=== PATIENT | female | born 1965 | race Caucasian/White ===

== ENCOUNTER 2017-08-03 09:42 | Emergency (ER) | payer BC, SELFPAY ==
[2017-08-03 10:59] VITALS: BP 0/0; PULSE 0; RESP 0; TEMP -17.7; TEMP 0
== END 2017-08-03 10:58 | disposition left against medical advice (07) ==
LOC: UTC 09:46
PROVIDERS: Emergency Provider Nurse Practitioner; Family Provider Family Medicine
DX: Z53.29 Procedure and treatment not carried out because of patient's decision for other reasons (principal)

== ENCOUNTER 2017-08-03 11:44 | Emergency (ER) | payer BC, SELFPAY ==
[2017-08-03 12:41] VITALS: BP 113/66; PULSE 62; RESP 16; TEMP 36.8; O2SAT 100; BMI 23.8
--- NOTE | 2017-08-03 12:59 | HMH.EDUTC ---
[facility] [place] Disposition Clinical Impression: Ear problems Disposition: Home, Self-Care Condition on Discharge: Good Instructions: DI for Cerumen Impaction Additional Instructions: Follow up with family doctor Return if needed Debrox may help with wax in ear Time of Disposition: 13:08 Medical Decision Making - Medical Records Medical records reviewed: Yes: I reviewed the patient's medical records. - Shade Inquiry Pt receiving controlled substance: No Shade was queried for this patient: No Vital Signs: 08/03/17 12:41 Temperature 98.3 F Temperature Source Temporal Artery Scan Pulse Rate [Right] 62 Respiratory Rate 16 Blood Pressure [Right Arm] 113/66 Blood Pressure Mean [Right Arm] 81 Blood Pressure Source [Right Arm] Automatic Cuff Blood Pressure Position [Right Arm] Sitting 02 Sat by Pulse Oximetry 100 Oxygen Delivery Method Room Air [facility] HPI - General Stated complaint: right ear pain Time Seen by Provider: 08/03/17 12:55 Mode of Arrival: Ambulatory Source of Information: Patient Limitations: No Limitations Description of Symptoms (Recalled from Triage Doc. by RN): RIGHT EAR ACHE X2 DAYS HEENT Symptoms (Recalled from RN notes): Yes Resp Symptoms (Recalled from RN notes): No Skin Symptoms (Recalled from RN notes): No MS Symptoms (Recalled from RN notes): No Functional Status (Recalled from RN notes): N - History of Present Illness Provider Complaint: Patient states that she had a bug in her ear about a year ago and now she is sensative in her ears State that she feels like her right ear may be stopped up with wax State that at times she can feel the wax move and it is irritating her and making her ear ache - Related Data Allergies Allergy/AdvReac Type Severity Reaction Status Date / Time No Known Allergies Allergy Verified 08/03/17 12:44 - Worker's Comp Is this a Worker's Comp case?: No [facility] History I have reviewed the patient's past medical history: Yes - Social History Alcohol Intake: never - Psychiatric History Expresses thoughts of harming self/others: None Suicide Plan Description: No Plan ROS Obtained: Yes All systems reviewed & no additional complaints - ENT Ears, Nose, Mouth, and Throat: Reports otalgia Physical Exam - General General appearance: alert, in no apparent distress - Expanded ENT Exam External ear exam: Present: other (No redness, large ball of wax noted in right ear, easily removed with crulette. Patient states that ear felt much better after wax removed) TM/Canal exam: Right TM: cerumen impaction - Respiratory Respiratory exam: Present: normal lung sounds bilaterally. Absent: respiratory distress - Cardiovascular Cardiovascular exam: Present: regular rate, normal rhythm. Absent: JVD - Abdominal Exam Abdominal exam: Present: soft, normal bowel sounds. Absent: distention, tenderness, guarding - Neurological Exam Neurological exam: Present: alert, oriented X3
[2017-08-03 13:07] VITALS: BP 113/66; PULSE 62; RESP 16; TEMP 36.8
--- NOTE | 2017-08-03 13:07 | ED_ITS ---
[facility] [place] Disposition Clinical Impression: Ear problems Disposition: Home, Self-Care Condition on Discharge: Good Instructions: DI for Cerumen Impaction Additional Instructions: Follow up with family doctor Return if needed Debrox may help with wax in ear Time of Disposition: 13:08 Medical Decision Making - Medical Records Medical records reviewed: Yes: I reviewed the patient's medical records. - Shade Inquiry Pt receiving controlled substance: No Shade was queried for this patient: No Vital Signs: 08/03/17 12:41 Temperature 98.3 F Temperature Source Temporal Artery Scan Pulse Rate [Right] 62 Respiratory Rate 16 Blood Pressure [Right Arm] 113/66 Blood Pressure Mean [Right Arm] 81 Blood Pressure Source [Right Arm] Automatic Cuff Blood Pressure Position [Right Arm] Sitting 02 Sat by Pulse Oximetry 100 Oxygen Delivery Method Room Air [facility] [place] HPI - General Stated complaint: right ear pain Time Seen by Provider: 08/03/17 12:55 Mode of Arrival: Ambulatory Source of Information: Patient Limitations: No Limitations Description of Symptoms (Recalled from Triage Doc. by RN): RIGHT EAR ACHE X2 DAYS HEENT Symptoms (Recalled from RN notes): Yes Resp Symptoms (Recalled from RN notes): No Skin Symptoms (Recalled from RN notes): No MS Symptoms (Recalled from RN notes): No Functional Status (Recalled from RN notes): N - History of Present Illness Provider Complaint: Patient states that she had a bug in her ear about a year ago and now she is sensative in her ears State that she feels like her right ear may be stopped up with wax State that at times she can feel the wax move and it is irritating her and making her ear ache - Related Data Allergies Allergy/AdvReac Type Severity Reaction Status Date / Time No Known Allergies Allergy Verified 08/03/17 12:44 - Worker's Comp Is this a Worker's Comp case?: No [facility] History I have reviewed the patient's past medical history: Yes - Social History Alcohol Intake: never - Psychiatric History Expresses thoughts of harming self/others: None Suicide Plan Description: No Plan ROS Obtained: Yes All systems reviewed & no additional complaints - ENT Ears, Nose, Mouth, and Throat: Reports otalgia Physical Exam - General General appearance: alert, in no apparent distress - Expanded ENT Exam External ear exam: Present: other (No redness, large ball of wax noted in right ear, easily removed with crulette. Patient states that ear felt much better after wax removed) TM/Canal exam: Right TM: cerumen impaction - Respiratory Respiratory exam: Present: normal lung sounds bilaterally. Absent: respiratory distress - Cardiovascular Cardiovascular exam: Present: regular rate, normal rhythm. Absent: JVD - Abdominal Exam Abdominal exam: Present: soft, normal bowel sounds. Absent: distention, tenderness, guarding - Neurological Exam Neurological exam: Present: alert, oriented X3
== END 2017-08-03 13:20 | disposition home or self-care (01) ==
PROVIDERS: Emergency Provider Nurse Practitioner; Family Provider Family Medicine
DX: H61.21 Impacted cerumen, right ear (principal)
CPT/HCPCS: 99201

== ENCOUNTER → 2019-07-12 08:57 | Outpatient (CLI) | payer BC, SELFPAY | PROVIDERS: Visit Provider Nurse Practitioner Family | DX: J11.1 Influenza due to unidentified influenza virus with other respiratory manifestations (principal) | CPT/HCPCS: 87275; 87276 ==

== ENCOUNTER → 2020-09-15 07:04 | Outpatient (CLI) | payer BC, SELFPAY ==
[2020-09-15 07:38] LABS: Basophils # 0.1 K/mm3 (0-0.2); Basophils % 1.1 % (0.1-2.0); Eosinophils # 0.1 K/mm3 (0.0-0.4); Eosinophils % 1.7 % (0.1-12.0); Hematocrit 40.6 % (37.0-47.0); Hemoglobin 13.2 g/dL (12.2-16.2); Lymphocytes # 1.7 K/mm3 (0.7-4.5); Lymphocytes % 36.1 % (10-50); Mean Corpuscular HGB Conc 32.5 g/dL (31.8-35.4); Mean Corpuscular Hemoglobin 30.1 pg (27.0-31.2); Mean Corpuscular Volume 92.5 fl (81-99); Mean Platelet Volume 8.9 fl (7.4-10.4); Monocytes # 0.3 K/mm3 (0.1-1.0); Monocytes % 5.2 % (1.7-9.3); Neutrophils # 2.7 K/mm3 (1.8-7.8); Platelet Count 229 K/mm3 (142-424); Red Blood Count 4.39 M/mm3 (4.20-5.40); Red Cell Distribution Width 13.6 % (11.5-17.5); White Blood Count 4.8 K/mm3 (4.8-10.8)
[2020-09-15 08:48] LABS: Alanine Aminotransferase 10 U/L (12-78); Albumin Level 4.4 g/dl (3.5-5.0); Albumin/Globulin Ratio 1.3 (1.1-1.8); Alkaline Phosphatase 65 U/L (38-126); Anion Gap 9.1 mEq/L (5-15); Aspartate Amino Transferase 17 U/L (14-36); Bilirubin,Total 0.5 mg/dl (0.2-1.3); Blood Urea Nitrogen 14 mg/dl (7-17); Calcium 9.5 mg/dl (8.4-10.2); Carbon Dioxide 25 mmol/L (22.0-30.0); Chloride 107 mmol/L (98-107); Chol/HDL Ratio 3.4 (1-3.5); Cholesterol 239 mg/dl (140-200); Estimated Glomerular Filt Rate 75 ml/min (>60); GFR (African American) 90 ML/MIN (>60); Globulin 3.5 g/dL (1.3-3.2); Glucose 88 mg/dl (74-100); HDL Cholesterol 70 mg/dl (40-60); Potassium 4.1 mmoL/L (3.5-5.1); Sodium 137 mmol/L (136-145); Total Protein,Serum 7.9 g/dl (6.3-8.2); Triglycerides 106 mg/dl (30-150); VLDL Cholesterol 21 mg/dL (0-40)
[2020-09-15 08:59] LABS: Direct LDL Cholesterol 140.69 mg/dL (100-129)
[2020-09-15 09:05] LABS: Free Thyroxine Index 2.9 ug/dL (5.93-13.13); T4 (Thyroxine) 11.6 ug/dl (5.53-11.0); Triiodothryronine (T3) Uptake 25 % (23.5-40.5)
[2020-09-15 09:06] LABS: 25-OH Vitamin D, Total 29.6 ng/mL (30-100)
[2020-09-15 09:19] LABS: Thyroid Stimulating Hormone 3.09 uIU/mL (0.465-4.68)
[2020-09-15 09:57] LABS: Vitamin B12 < 159 pg/mL (239-931)
[2020-09-16 14:19] LABS: FSH 0.9 mIU/mL (.); LH <0.3 mIU/mL (.)
== END ==
PROVIDERS: Visit Provider Nurse Practitioner Obstetrics & Gynecology
DX: Z01.419 Encounter for gynecological examination (general) (routine) without abnormal findings (principal); N95.1 Menopausal and female climacteric states; R53.83 Other fatigue; E55.9 Vitamin D deficiency, unspecified; Z79.899 Other long term (current) drug therapy
CPT/HCPCS: 36415; 80053; 80061; 82306; 82607; 83001; 83002; 84436; 84443; 84479; 85025

== ENCOUNTER → 2020-09-17 15:02 | Outpatient (CLI) | payer BC, SELFPAY ==
--- NOTE | 2020-09-17 15:02 | US_ITS ---
PROCEDURE: US TRANSVAGINAL CLINICAL INDICATION: left side pelvic pain COMPARISON: No exams were available for comparison FINDINGS: UTERUS: 9.3 x 6cmx 5cm with a combined endometrial thickness of 6.9mm LEFT OVARY: [id number] with a volume of 4ml. RIGHT OVARY: 2cmx [id number] with a volume of 1.6ml. Multiple hypoechoic lesions are noted in the uterus suggestive of fibroids. The largest of these fibroids measures 3.3 times 2.9 centimeters, appears pedunculated. The uterus is mildly enlarged. Echogenicities are noted within the cervix, likely secondary to recent surgery. IMPRESSION: Uterine fibroids measuring up to 3.3 centimeters. Dictated by: Christie Douglass 09/18/2020 10:12 Christie Douglass in OV 09/18/2020 10:12
== END ==
PROVIDERS: PCP Family Medicine; Visit Provider Nurse Practitioner Obstetrics & Gynecology
DX: R10.2 Pelvic and perineal pain (principal)
CPT/HCPCS: 76830

== ENCOUNTER 2022-01-26 09:16 | Emergency (ER) | payer BC, SELFPAY ==
[2022-01-26 09:30] VITALS: BP 130/85; PULSE 80; RESP 20; TEMP 36.6; O2SAT 98; BMI 25.5
--- NOTE | 2022-01-26 09:37 | EXP.UTC ---
Discharge Plan Disposition Patient Disposition: Home, Self-Care Condition: Good Prescriptions Prescriptions: No Action levonorg-eth estrad triphasic [Levonest (28)] 50-30 (6)/75-40 (5)/125-30(10) tablet 1 tab PO DAILY Qty: 28 11RF peg 3350-electrolytes [Golytely] 236-22.74-6.74 -5.86 gram recon soln 240 ml PO Q10M Qty: 4000 0RF Rx Instructions: until fecal effluent is clear Referrals Follow up/Referrals: Sameer Barragan MD [Primary Care Provider] - See instructions Activity Restrictions/Add. Instructions Additional Instructions/Restrictions: *Monitor Temp, Over the counter Motrin or Tylenol as directed/as needed Tylenol every 4 hours and Motrin every 6 hours (as long as your family doctor has told you that you can take it) for fever or pain. and straight to ER if unable to lower temp less than 101.0 after medication given *Warm salt water gargles may help to soothe the throat *Throat Lozenges? *Warm fluids like tea with honey may help to soothe the throat? *Sleep elevated *Humidifier/Vaporizer Follow up IMMEDIATELY for new or worsening symptoms or no Noticeable improvement over the next 48-72 hours. 911 for difficulty breathing or swallowing You were tested for today for COVID19 your test result should be back in the next 24-48 hours, you may check your results on the [facility] My Health Portal Make sure to take your Vitamins Vit. C Vit D and Zinc if you can take them Clinical Impressions Clinical Impression: Encounter for laboratory testing for COVID-19 virus Stand Alone Forms Stand Alone Forms: Work/School Release Instructions Patient Instructions: Allergic Rhinitis, DI for Allergic Rhinitis Discharge ED Provider: Josephine Villagomez [facility] [place] General Stated complaint: body aches, wants covid test Time Seen by Provider: 01/26/22 09:38 History of Present Illness Provider Complaint: Patient states that she has been having nasal congestion and body aches for the last couple of days that started after mowing her grass States that she thinks it is just allergies but she works with [employer] and wanted to get a COVID test to make sure States that she has taken several at home tests and they have been negative Related Data Previous Rx's Medication Instructions Recorded l.norgest-eth.estradiol triphasic 1 tab PO DAILY #28 tabs 09/17/21 50-30 (6)/75-40(5)/125-30(10) tablet (Levonest (28)) peg 3350-electrolytes 236 240 ml PO Q10M #4,000 mL 10/12/21 gram-22.74 gram-6.74 gram-5.86 gram solution (Golytely) Allergies Allergy/AdvReac Type Severity Reaction Status Date / Time No Known Allergies Allergy Verified 10/12/21 10:47 [facility] Medical History (Updated 01/26/22 @ 09:43 by Josephine Villagomez APRN) No significant past medical history Social History Smoking Status: Never smoker alcohol intake: never substance use type: denies use current occupational status: employed Travel in the last 8 weeks: None ROS Obtained: Yes All systems reviewed & no additional complaints except as documented and Yes Systems reviewed as appropriate & no additional complaints except as documented Constitutional Constitutional: Reports system reviewed and no additional complaints, except as documented, Reports as per HPI, Reports body ache and Reports chills ENT Ears, Nose, Mouth, and Throat: Reports system reviewed and no additional complaints, except as documented, Reports as per HPI, Reports nasal congestion and Reports nasal discharge Cardiovascular Cardiovascular: Reports system reviewed and no additional complaints, except as documented and Reports as per HPI Respiratory Respiratory: Reports system reviewed and no additional complaints, except as documented and Reports as per HPI Physical Exam General General appearance: alert and in no apparent distress Expanded ENT Exam Nose exam: Absent sinus tenderness Respiratory Respiratory exam: Present normal lung sounds
[2022-01-26 09:38] VITALS: BP 130/85; PULSE 80; RESP 20; TEMP 36.6; O2SAT 98
[2022-01-26 09:39] LABS: Adenovirus,PCR Not Detected (NotDetected); Bordetella Pertussis Not Detected (NotDetected); Chlamydophila Pneumoniae, PCR Not Detected (NotDetected); Coronavirus 19, PCR Not Detected (NotDetected); Coronavirus 229E Not Detected (NotDetected); Coronavirus NL63 Not Detected (NotDetected); Coronavirus OC43 Not Detected (NotDetected); Coronovirus HKU1,PCR Not Detected (NotDetected); Human Metapneumovirus Not Detected (NotDetected); Influenza A, PCR Not Detected (NotDetected); Influenza AH1, 2009 Not Detected (NotDetected); Influenza AH1, PCR Not Detected (NotDetected); Influenza AH3,PCR Not Detected (NotDetected); Influenza B, PCR Not Detected (NotDetected); Mycoplasma Pneumoniae, PCR Not Detected (NotDetected); Parainfluenza 1, PCR Not Detected (NotDetected); Parainfluenza 2, PCR Not Detected (NotDetected); Parainfluenza 3, PCR Not Detected (NotDetected); Parainfluenza 4, PCR Not Detected (NotDetected); Respiratory Syncytial Virus Not Detected (NotDetected); Rhinovirus/Enterovirus Not Detected (NotDetected)
== END 2022-01-26 09:54 | disposition home or self-care (01) ==
PROVIDERS: Emergency Provider Nurse Practitioner; PCP Family Medicine
DX: R09.81 Nasal congestion (principal); M79.10 Myalgia, unspecified site; Z20.822 Contact with and (suspected) exposure to COVID-19
CPT/HCPCS: 87581; 87632; 87798; 99212; C9803; G0463; U0003; U0005

== ENCOUNTER 2023-09-12 15:46 | Emergency (ER) | payer BC, SELFPAY ==
[2023-09-12 16:00] VITALS: BP 174/78; PULSE 86; RESP 19; TEMP 36.6; O2SAT 98; BMI 26.4
--- NOTE | 2023-09-12 16:10 | XR_ITS ---
PROCEDURE INFORMATION: Exam: XR Right Elbow Exam date and time: 09/12/2023 4:18 PM Age: 57 years old Clinical indication: Injury or trauma; Fall; Blunt trauma (contusions or hematomas); Elbow; Right TECHNIQUE: Imaging protocol: Radiologic exam of the right elbow. Views: 3 or more views. COMPARISON: CR Humerus R 09/12/2023 4:15 PM FINDINGS: Bones/joints: Osseous alignment is normal. No acute fracture. No significant arthritic change or joint fluid. Soft tissues: Normal. IMPRESSION: Negative right elbow
--- NOTE | 2023-09-12 16:10 | XR_ITS ---
PROCEDURE INFORMATION: Exam: XR Right Forearm Exam date and time: 09/12/2023 4:18 PM Age: 57 years old Clinical indication: Injury or trauma; Fall; Blunt trauma (contusions or hematomas); Arm, lower; Right TECHNIQUE: Imaging protocol: Radiologic exam of the right forearm. Views: 2 views. COMPARISON: CR XR ELBOW RT MIN 3V 09/12/2023 4:18 PM FINDINGS: Bones/joints: Osseous alignment is normal. No acute fracture. No significant arthritic change Soft tissues: Normal. IMPRESSION: Negative right forearm
--- NOTE | 2023-09-12 16:10 | XR_ITS ---
PROCEDURE INFORMATION: Exam: XR Right Shoulder Exam date and time: 09/12/2023 4:10 PM Age: 57 years old Clinical indication: Injury or trauma; Fall; Blunt trauma (contusions or hematomas); Shoulder; Right TECHNIQUE: Imaging protocol: Radiologic exam of the right shoulder. Views: 2 or more views. COMPARISON: No relevant prior studies available. FINDINGS: Bones/joints: Subtle lucency in the greater tuberosity of the humerus suggesting nondisplaced fracture. No other findings suspicious for fracture. Osseous alignment is normal. No arthritic change. Soft tissues: Normal. IMPRESSION: Suspected nondisplaced fracture of the greater tuberosity of the humerus
--- NOTE | 2023-09-12 16:10 | XR_ITS ---
PROCEDURE INFORMATION: Exam: XR Right Clavicle, Complete Exam date and time: 09/12/2023 4:13 PM Age: 57 years old Clinical indication: Injury or trauma; Fall; Blunt trauma (contusions or hematomas); Shoulder; Right TECHNIQUE: Imaging protocol: Radiologic exam of the right clavicle. Complete exam. Views: Any number of views. COMPARISON: CR XR SHOULDER RT MIN 2V 09/12/2023 4:10 PM FINDINGS: Bones/joints: Osseous alignment is normal. There are findings suggesting nondisplaced fracture of the greater tuberosity of the humerus. Clavicle and other osseous structures appear intact. No significant arthritic change Soft tissues: Normal. IMPRESSION: Suspected nondisplaced fracture of the greater tuberosity of the humerus
--- NOTE | 2023-09-12 16:10 | XR_ITS ---
PROCEDURE INFORMATION: Exam: XR Right Humerus Exam date and time: 09/12/2023 4:15 PM Age: 57 years old Clinical indication: Injury or trauma; Fall; Blunt trauma (contusions or hematomas); Arm, upper; Right TECHNIQUE: Imaging protocol: Radiologic exam of the right humerus. Views: 2 or more views. COMPARISON: CR Clavicle R 09/12/2023 4:13 PM FINDINGS: Bones/joints: Nondisplaced fracture of the greater tuberosity of the humerus. No other evidence of acute fracture. Osseous alignment is normal. No significant arthritic change Soft tissues: Normal. IMPRESSION: Nondisplaced fracture of the greater tuberosity of the humerus
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
[2023-09-12 17:28] VITALS: BP 174/78; PULSE 86; RESP 18; TEMP 36.6; O2SAT 98
== END 2023-09-12 17:28 | disposition home or self-care (01) ==
PROVIDERS: Emergency Provider Nurse Practitioner; PCP Family Medicine
DX: S42.254A Nondisplaced fracture of greater tuberosity of right humerus, initial encounter for closed fracture (principal); M25.511 Pain in right shoulder; M25.521 Pain in right elbow; W18.30XA Fall on same level, unspecified, initial encounter
CPT/HCPCS: 73000; 73030; 73060; 73080; 73090; 99212; 99214; G0463

== ENCOUNTER 2023-10-03 08:29 | Outpatient (CLI) | payer BC, SELFPAY ==
--- NOTE | 2023-10-03 08:33 | XR_ITS ---
FINAL REPORT CLINICAL HISTORY: right humerus fx COMPARISON: None FINDINGS: 3 images of the right shoulder were obtained. Prior films are not available for comparison purposes. There is a nondisplaced fracture of the greater trochanter of the proximal humerus, with cortical disruption at both the superior and the lateral margins of the proximal humerus. The joint spaces are intact. There is a questionable small loose body superior to the glenohumeral joint measuring 3 mm. IMPRESSION: Nondisplaced fracture of the greater trochanter of the proximal humerus, as described. Questionable small loose body superior to the glenohumeral joint measuring 3 mm. Reviewed, Interpreted and Dictated by Vincent Che MD Transcribed by Rina Andrade Authenticated and [facility]
== END 2023-10-03 23:59 | disposition home or self-care (01) ==
LOC: RAD 08:30
PROVIDERS: PCP Family Medicine; Visit Provider Physician Assistant Surgical
DX: M25.511 Pain in right shoulder (principal); S42.254A Nondisplaced fracture of greater tuberosity of right humerus, initial encounter for closed fracture
CPT/HCPCS: 73030

== ENCOUNTER 2023-10-31 08:32 | Outpatient (CLI) | payer BC, SELFPAY ==
--- NOTE | 2023-10-31 08:36 | XR_ITS ---
FINAL REPORT CLINICAL HISTORY: right shoulder pain COMPARISON: 10/03/2023 FINDINGS: Two views again demonstrate a nondisplaced fracture of the greater trochanter. Fracture line is much less distinct indicating partial fracture healing. There is a 2 mm calcification in the superior glenohumeral joint suspicious for joint body. Joint spaces are otherwise intact. IMPRESSION: Near complete healing nondisplaced fracture greater trochanter. Reviewed, Interpreted and Dictated by Jerry Barnes MD Transcribed by Jenny Christensen Authenticated and . [facility]
== END 2023-10-31 23:59 | disposition home or self-care (01) ==
LOC: RAD 08:33
PROVIDERS: PCP Family Medicine; Visit Provider Physician Assistant
DX: M25.511 Pain in right shoulder (principal); S42.254A Nondisplaced fracture of greater tuberosity of right humerus, initial encounter for closed fracture
CPT/HCPCS: 73030

== ENCOUNTER 2023-12-21 09:00 | Outpatient (RCR) | payer BC, SELFPAY ==
--- NOTE | 2023-12-06 15:48 | [facility].RHREAS ---
Rehab Reassessment Rehab OP Re-assessment Start: 11/06/23 15:07 Freq: Status: Active Protocol: Document 12/06/23 14:48 ADILSON (Rec: 12/06/23 15:48 ADILSON [id number]) E-signed By Anna Medrano OT Rehab Re-assessment Subjective Subjective I do think it is doing better . Objective Objective Notes Pt continues to be seen twice a week in order to address right shoulder deficits. Each session pt engages in R shoulder AROM, AAROM, and strengthening exercises. Pt also receives PROM manual stretching in all planes; flexion, abduction, ER, IR. Pt also receives modalities in order to improve pain/ inflammation. Assessment Progress Assessment Progressing as Expected Assessment Notes Pt is consistent about attending therapy sessions. Pt is to follow up with ortho tomorrow; 12/07/23. Pt reports improved pain since starting therapy. She has most of her pain while reaching behind her in extension; pt's worst pain is 1/10. Pt's AROM has improved significantly since starting therapy. Current R shoulder AROM Flex: 138 degrees Abd: 142 degrees ER: 70 degrees IR: 70 degrees Patient goals met [address]-5 LT, 2, and 4 Goals Not Met See below Revised Goals LT and 5 New goals AROM/MMT Flex: 150 degrees; 4- Abd: 150 degrees; 4- ER: 80 degrees; 4- IR: 70 degrees; 4- Plan Plan Continue with OT plan of care at this time. Frequency of Therapy 2x's a week Duration of therapy 4 more weeks Time and Billing Re-Eval Time 11 Re-Eval Billing Units 1 PHYSICIAN CERTIFICATION: I certify the specified therapy services for Abi Tian are required, authorized, and reviewed every 30 days.
== END 2023-12-21 09:05 | disposition home or self-care (01) ==
LOC: OT 09:00
PROVIDERS: Visit Provider Physician Assistant
DX: M25.511 Pain in right shoulder (principal); S42.91XA Fracture of right shoulder girdle, part unspecified, initial encounter for closed fracture
CPT/HCPCS: 97010; 97014; 97035; 97110; 97140; 97164; 97165; 97530; G0283

== ENCOUNTER 2024-10-29 16:45 | Outpatient (CLI) | payer BC, SELFPAY | END 2024-10-29 23:59 | disposition home or self-care (01) | LOC: LAB.DROPOF 10-30 12:26 | PROVIDERS: PCP Student in an Organized Health Care Education/Training Program; Visit Provider Student in an Organized Health Care Education/Training Program | DX: N39.0 Urinary tract infection, site not specified (principal) | CPT/HCPCS: 87086; 87088; 87186 ==